=== PATIENT | female | born 1955 | race Caucasian/White ===

== ENCOUNTER → 2016-10-26 | Outpatient (CLI) | payer OTHER ==
[~2016-10-26] MED LIST: AMLO-110 PO; CLC100 PO; GLC/500 PO; METO1TAB69 PO; MULTTAB58 PO; SIMV20TA2 PO; WARF2TAB PO
--- NOTE | 2016-10-26 10:38 | DIAGNOSTIC IMAGING REPORT ---
BILATERAL KNEE RADIOGRAPHS CLINICAL HISTORY: Status post bilateral total knee arthroplasties. COMPARISON STUDY: Knee radiographs July 22, 2015. FINDINGS: Right knee: Alignment of the total right knee arthroplasty is anatomic with the exception of a lateral patellar tilt. There is no periprosthetic fracture or lucency. The hardware is intact. There is a small right knee joint effusion. Left knee: Alignment of the total left knee arthroplasty is anatomic. There is no periprosthetic fracture or lucency. There is a small left knee joint effusion. A calcific density projects over the suprapatellar joint space. IMPRESSION: Right knee: 1. Status post total right knee arthroplasty. No periprosthetic fracture or lucency. 2. Small right knee joint effusion. Left knee: 1. Status post total left knee arthroplasty. No periprosthetic fracture or lucency. 2. Small left knee joint effusion. Electronically signed by: Conor Puentes M.D. 10/26/2016 10:36 AM Dictated Date/Time: 10/26/2016 10:34 AM
== END | disposition home or self-care (01) ==
LOC: C.RDSM 10:15
PROVIDERS: ATTEND Physician Assistant
DX: Z96.653 Presence of artificial knee joint, bilateral (principal); M25.462 Effusion, left knee; M25.461 Effusion, right knee